=== PATIENT | male | born 1975 | race Caucasian/White ===

== ENCOUNTER 2020-12-03 18:07 | Emergency (ER) | payer OTHER, SELFPAY ==
[2020-12-03 18:17] VITALS: BP 120/83; PULSE 105; RESP 16; TEMP 37.1; O2SAT 99
--- NOTE | 2020-12-03 18:28 | PC.NURSE ---
in br to obtain ua spec.
--- NOTE | 2020-12-03 18:48 | ED.MALEGU ---
HPI - Male Genitourinary General Chief complaint: Urogenital-Male Stated complaint: swelling Testicle Time Seen by Provider: 12/03/20 18:32 Source: patient and RN notes reviewed Mode of arrival: ambulatory Limitations: no limitations History of Present Illness HPI Narrative: Patient presents today complaining of left testicular swelling and pain with left lower quadrant pain since 5:00 this morning upon waking. States pain has been constant. Patient does state he had some hematuria this weekend, but this has since resolved. Denies dysuria, penile discharge, or any additional symptoms. He currently rates his pain 3/10 after he took a gram of Tylenol prior to arrival. MD Complaint: testicle pain and testicle swelling Related Data Home Medications Medication Instructions Recorded Confirmed No Home Medications 12/03/20 12/03/20 Allergies Allergy/AdvReac Type Severity Reaction Status Date / Time No Known Allergies Allergy Verified 12/03/20 18:18 Review of Systems Review of Systems: Narrative: CONSTITUTIONAL: Denies body aches, fever, chills, or sweats. EYES: Denies visual changes, redness, or discharge. ENT: Denies rhinorrhea, congestion, sore throat, or otalgia. CARDIOVASCULAR: Denies chest pain, palpitations, or edema. RESPIRATORY: Denies cough or dyspnea. GASTROINTESTINAL: Denies nausea, vomiting, or diarrhea.+ Left lower quadrant pain GENITOURINARY: Denies dysuria or hematuria.+ Left testicular swelling and pain SKIN: Denies rash, itching, or wounds. MUSCULOSKELETAL: Denies back pain, joint pain, or myalgia. NEUROLOGIC: Denies headache, numbness, tingling, or weakness. PSYCH: Denies depression or anxiety. [facility] Past Medical History Medical History (Updated 12/03/20 @ 18:53 by Nazanin Connelly, [facility], ) History of kidney stones Comments At time of signature, I have reviewed and agree with nursing past medical, surgical, social and family history unless otherwise noted. Please see nursing chart for further information. There is no relevant family history pertinent to the presenting complaint Exam Narrative: Exam Narrative: GENERAL: Well-appearing, well-nourished, and in no acute distress. HEAD: Normocephalic, atraumatic. EYES: EOMI. No redness or drainage. Conjunctivae normal. ENT: Mucous membranes pink and moist. NECK: Normal AROM. CHEST: No respiratory distress. Clear to auscultation. HEART: Regular rate and rhythm. No murmur appreciated. Normal peripheral pulses. ABDOMEN: Soft, nondistended, normal active bowel sounds.+ Mild tenderness to left lower quadrant without rebound or guarding. : Left testicle moderately edematous and tender anteriorly. No swelling or urethral discharge. Right testicle normal. MUSCULOSKELETAL: No bony tenderness. EXTREMITIES: Normal range of motion. No edema. SKIN: Warm, dry, no rash. Capillary refill normal. Normal skin turgor. NEURO: No focal deficits. Alert and oriented x3. Gait steady. PSYCH: Normal affect. No signs of depression or anxiety. Course Vital Signs Vital signs: Vital Signs Temperature 98.7 F 12/03/20 18:17 Pulse Rate 105 H 12/03/20 18:17 Respiratory Rate 16 12/03/20 18:17 Blood Pressure 120/83 12/03/20 18:17 Pulse Oximetry 99 12/03/20 18:17 Temperature 98.7 F 12/03/20 18:17 Pulse Rate 105 H 12/03/20 18:17 Respiratory Rate 16 12/03/20 18:17 Blood Pressure 120/83 12/03/20 18:17 Pulse Oximetry 99 12/03/20 18:17 Reviewed Transfer Transfered to: [place] Transportation: Other (Private vehicle) Transfer rationale: Left testicular swelling and pain Accepting physician: Santos TREJO - Male Genitourinary Differential Diagnosis Differential diagnosis: Likely urinary tract infection, urethritis, epididymitis and other (Hydrocele, varicocele, ureteral stone) Lab Data Attestation: I reviewed the patient's lab results. Labs: Urine Glucose Negative Re
== END 2020-12-03 18:48 | disposition short-term general hospital (02) ==
PROVIDERS: Emergency Provider Nurse Practitioner
DX: N50.89 Other specified disorders of the male genital organs (principal); R10.32 Left lower quadrant pain
CPT/HCPCS: 81003; 99202; G0463

== ENCOUNTER 2020-12-03 19:05 | Emergency (ER) | payer OTHER, SELFPAY ==
--- NOTE | ~2020-12-03 | US_ITS ---
EXAMINATION: US scrotum doppler EXAM DATE: 12/03/2020 21:13 INDICATION: Left testicular pain. TECHNIQUE: Multiple grayscale and Doppler images of the testicles and scrotum were obtained bilateral ly. There is no prior study for comparison. FINDINGS: Right testicle measures 4.6 x 3.2 x 2.3 cm and is morphologically normal. Low resistance Doppler pedro w confirmed. The epididymis is unremarkable. There is no hydrocele or varicocele. Left testicle measures 5.1 x 3.3 x 3.4 cm and has slightly heterogeneous echogenicity compared to con tralateral side. The epididymis and testicular right, have diffusely increased vascularity, appearan ce consistent with epididymoorchitis. There is small reactive hydrocele. IMPRESSION: 1. Left epididymoorchitis. Reviewed, dictated and finalized at location A. IMPRESSION: 1. Left epididymoorchitis.
[2020-12-03 19:43] VITALS: BP 133/71; PULSE 93; RESP 14; TEMP 37.2; O2SAT 98
--- NOTE | 2020-12-03 20:05 | ED.GENADULT ---
HPI - General Adult General Chief complaint: Urogenital-Male Stated complaint: swollen testicle Time Seen by Provider: 12/03/20 19:50 Source: patient History of Present Illness HPI narrative: Patient is a 45 y/o male complaining of left scrotal pain and swelling when he woke up this morning around 5:00 AM. He describes the pain as a pressure and it's worse with walking and any movement. He has no fever chills. He has no difficulty with urination. He also has some left lower abdominal pain. Related Data Allergies Allergy/AdvReac Type Severity Reaction Status Date / Time No Known Allergies Allergy Verified 12/03/20 18:18 Review of Systems Constitutional: Constitutional: Denies chills, Denies fever(s), Denies headache(s) and Denies weakness Eyes: Eyes: Denies blurry vision ENT: Denies headache(s) and Denies neck pain Cardiovascular: Cardiovascular: Denies chest pain and Denies dyspnea Respiratory: Respiratory: Denies cough and Denies dyspnea Gastrointestinal: Gastrointestinal: Reports abdominal pain, Denies diarrhea, Denies nausea and Denies vomiting Genitourinary: Genitourinary: Denies hematuria, Denies dysuria and Reports scrotal swelling Musculoskeletal: Musculoskeletal: Denies back pain and Denies neck pain Neurologic: Denies headache(s) and Denies weakness [facility] Past Medical History Medical History History of kidney stones Exam Const: General: no acute distress and well developed Orientation/consciousness: oriented to person, oriented to place, oriented to time and patient oriented x3 HENMT: Head: normocephalic Ears: external ears normal General nose exam: Normal external nose present Eyes: General: appearance normal, both eyes and all related structures Conjunctivae: conjunctivae normal Neck: Neck: normal visual inspection and full ROM Chest: Chest palpation & inspection: normal inspection of the chest and no tenderness Resp: Effort & Inspection: normal respiratory effort Auscultation: clear to auscultation bilaterally Cardio: Rate: regular rate Rhythm: regular rhythm GI: GI Palp: No abdominal tenderness and Yes Soft to palpation : Male General Exam: Yes normal external exam Penis: Yes normal penis Scrotum: scrotal swelling on the left Skin: General skin exam: normal color and turgor normal Neuro: General: oriented to person, oriented to place, oriented to time and patient oriented x3 Cognition (Neuro): normal cognition Extrem: General: normal to inspection, full ROM and no pedal edema Psych: Appearance: grossly normal Mental Status: mental status grossly normal Affect: normal affect Course Vital Signs Vital signs: Vital Signs Temperature 37.2 C 12/03/20 19:43 Pulse Rate 93 12/03/20 19:43 Respiratory Rate 14 12/03/20 19:43 Blood Pressure 133/71 12/03/20 19:43 Pulse Oximetry 98 12/03/20 19:43 Temperature 37.2 C 12/03/20 19:43 Pulse Rate 93 12/03/20 19:43 Respiratory Rate 14 12/03/20 19:43 Blood Pressure 133/71 12/03/20 19:43 Pulse Oximetry 98 12/03/20 19:43 Medical Decision Making Vital Signs Vital Signs: Vital Signs Temperature 37.2 C 12/03/20 19:43 Pulse Rate 93 12/03/20 19:43 Respiratory Rate 14 12/03/20 19:43 Blood Pressure 133/71 12/03/20 19:43 Pulse Oximetry 98 12/03/20 19:43 Temperature 37.2 C 12/03/20 19:43 Pulse Rate 93 12/03/20 19:43 Respiratory Rate 14 12/03/20 19:43 Blood Pressure 133/71 12/03/20 19:43 Pulse Oximetry 98 12/03/20 19:43 Lab Data Result diagrams: 12/03/20 21:54 12/03/20 21:54 Labs: Lab Results 12/03/20 12/03/20 12/03/20 Range/Units 21:54 21:54 21:54 WBC 14.3 H (4.5-10.0) K/mm3 RBC 4.73 (4.6-6.20) M/mm3 Hgb 14.2 (14.0-18.0) g/dL Hct 42.3 (42.0-52.0) % MCV 89.4 (80-100) fl MCH 30.0 (26-34) pg MCHC 33.6 (32-36) g/dl RDW 11.9 (11.5-14.5)
[2020-12-03 22:03] LABS: Basophils Absolute Auto 0.1 K/mm3 (0.0-0.1); Basophils Percent Auto 0.4 % (0.2-1.2); Eosinophils Absolute Auto 0.2 K/mm3 (0-0.3); Eosinophils Percent Auto 1.1 % (0-4.4); Hematocrit 42.3 % (42.0-52.0); Hemoglobin 14.2 g/dL (14.0-18.0); Immature Granulocyte Absolute 0.06 K/mm3 (0.00-0.031); Immature Granulocyte Percent A 0.4 % (0-0.5); Lymphocytes Absolute Auto 2.17 K/mm3 (0.9-3.2); Lymphocytes Percent Auto 15.2 % (18.3-44.2); Mean Corpuscular HGB Conc 33.6 g/dl (32-36); Mean Corpuscular Volume 89.4 fl (80-100); Mean Platelet Volume 10.5 fl (7.4-10.4); Monocytes Absolute Auto 1.5 K/mm3 (0.1-0.6); Monocytes Percent Auto 10.6 % (2.6-8.5); Neutrophils Absolute Auto 10.3 K/mm3 (1.3-6.7); Neutrophils Percent Auto 72.3 % (45.5-73.1); Platelet Count Result 305 k/mm3 (150-375); Red Blood Count 4.73 M/mm3 (4.6-6.20); Red Cell Distribution Width 11.9 % (11.5-14.5); White Blood Count 14.3 K/mm3 (4.5-10.0)
[2020-12-03 22:11] LABS: Add Urine Microscopic? YES; Appearance Urine Cloudy (Clear); Bacteria Urine 1+ /hpf; Bilirubin Urine Negative (Negative); Blood Urine 1+ (Negative); Color Urine Amber (Yellow); Glucose Urine UA Negative (Negative); Ketones Urine 1+ mg/dL (Negative); Leukocyte Esterase Ur 2+ LEU/UL (Negative); Mucus Urine Heavy /lpf; Nitrate Urine Negative (Negative); Protein Urine 2+ mg/dL (Negative); Squamous Epithelial Cell Urine Few /hpf (Few); WBC Urine >75 /hpf
[2020-12-03 22:12] LABS: Specific Grav Ur 1.041 (1.001-1.035)
[2020-12-03 22:18] LABS: Alanine Aminotransferase 34 U/L (4-50); Albumin Level 4.5 g/dL (3.5-5.1); Alkaline Phosphatase 102 U/L (38-126); Anion Gap 12 mmol/L (8-16); Aspartate Amino Transferase 33 U/L (17-59); Bilirubin,Total 0.7 mg/dL (0.2-1.3); Blood Urea Nitrogen 20 mg/dL (9-20); Calcium 9.1 mg/dL (8.4-10.2); Carbon Dioxide 26 mmol/L (22-30); Chloride 105 mmol/L (98-107); Estimated CRCL calculation 73 ml/min; Estimated Glomerular Filt Rate 60; Glucose 96 mg/dL (75-110); Potassium 3.9 mmol/L (3.4-5.0); Sodium 143 mmol/L (137-145)
[2020-12-03] MEDS: LIDOCAINE HCL 1% LOCAL INJ 20 ML VIAL (23:28)
[2020-12-03] MEDS: cefTRIAXone 1 GM VIAL IM (23:28)
[2020-12-04 00:20] VITALS: BP 126/78; PULSE 90; RESP 16; TEMP 36.7; O2SAT 100
== END 2020-12-03 23:35 | disposition home or self-care (01) ==
PROVIDERS: Emergency Provider Emergency Medicine
DX: N45.1 Epididymitis (principal)
CPT/HCPCS: 36415; 76870; 80053; 81001; 85025; 87086; 93976; 96372; 99284; J0696

== ENCOUNTER 2021-01-20 13:03 | Emergency (ER) | payer OTHER, SELFPAY ==
--- NOTE | ~2021-01-20 | CT_ITS ---
EXAMINATION: CT abdomen pelvis w con DATE: 01/20/2021 17:54 INDICATION: Epigastric abdominal pain. TECHNIQUE: Computed tomography (CT) of the abdomen and pelvis was performed with 100 mL Omnipaque 350 intravenous contrast. Automated exposure control and iterative reconstruction technique were employe d. The dose-length product was 676.36 mGy-cm. COMPARISON: None. FINDINGS: The visualized portions of the lung bases demonstrate mild atelectasis. No pleural effusion . The heart size is normal. No pericardial effusion. There is a small sliding hiatal hernia. There ar e cysts in the liver measuring up to 4 mm. The gallbladder, spleen, pancreas, and adrenal glands are normal. There is a 4 mm cyst in right kidney. There is a 1 mm stone in right kidney. There is a delay ed left-sided contrast nephrogram. There is mild left hydronephrosis and hydroureter. There is a 3 mm stone at left ureterovesicular junction. The prostate is mildly enlarged. There are no dilated loops of bowel. The appendix is normal. There are no pathologically enlarged lymph nodes. There is no free intraperitoneal fluid. There is prominent fat in the inguinal canals that may be small hernias. Ther e is mild thoracolumbar spondylosis. IMPRESSION: 1. 3 mm stone at left ureterovesicular junction with mild left hydronephrosis and hydroureter. 2. 1 mm nonobstructing right kidney stone. Reviewed, dictated and finalized at location A. IMPRESSION: 1. 3 mm stone at left ureterovesicular junction with mild left hydronephrosis a nd hydroureter. 2. 1 mm nonobstructing right kidney stone.
[2021-01-20 13:13] VITALS: BP 165/110; PULSE 110; RESP 18; TEMP 36.3; O2SAT 97
[2021-01-20 13:30] LABS: Basophils Percent Auto 0.2 % (0.2-1.2); Eosinophils Percent Auto 0.2 % (0-4.4); Hematocrit 44.1 % (42.0-52.0); Immature Granulocyte Absolute 0.04 K/mm3 (0.00-0.031); Immature Granulocyte Percent A 0.3 % (0-0.5); Lymphocytes Absolute Auto 1.49 K/mm3 (0.9-3.2); Lymphocytes Percent Auto 9.8 % (18.3-44.2); Mean Corpuscular Hemoglobin 29.9 pg (26-34); Mean Corpuscular Volume 87.8 fl (80-100); Mean Platelet Volume 10.4 fl (7.4-10.4); Monocytes Absolute Auto 1.3 K/mm3 (0.1-0.6); Monocytes Percent Auto 8.8 % (2.6-8.5); Neutrophils Absolute Auto 12.2 K/mm3 (1.3-6.7); Neutrophils Percent Auto 80.7 % (45.5-73.1); Platelet Count Result 351 k/mm3 (150-375); Red Blood Count 5.02 M/mm3 (4.6-6.20); Red Cell Distribution Width 12.4 % (11.5-14.5); White Blood Count 15.2 K/mm3 (4.5-10.0)
[2021-01-20 13:43] LABS: Alanine Aminotransferase 31 U/L (4-50); Albumin Level 4.4 g/dL (3.5-5.1); Alkaline Phosphatase 105 U/L (38-126); Anion Gap 10 mmol/L (8-16); Aspartate Amino Transferase 31 U/L (17-59); Bilirubin,Total 0.9 mg/dL (0.2-1.3); Blood Urea Nitrogen 18 mg/dL (9-20); Calcium 9.3 mg/dL (8.4-10.2); Carbon Dioxide 24 mmol/L (22-30); Chloride 103 mmol/L (98-107); Estimated CRCL calculation 60 ml/min; Estimated Glomerular Filt Rate 47; Glucose 116 mg/dL (65-110); Lipase 35 U/L (23-300); Potassium 3.8 mmol/L (3.4-5.0); Sodium 137 mmol/L (137-145)
[2021-01-20 13:51] LABS: Mucus Urine Rare /lpf; Squamous Epithelial Cell Urine Few /hpf (Few); WBC Urine 0-3 /hpf
[2021-01-20 14:02] LABS: Add Urine Microscopic? YES; Appearance Urine Clear (Clear); Bilirubin Urine Negative (Negative); Blood Urine Negative (Negative); Color Urine Yellow (Yellow); Glucose Urine UA Negative (Negative); Ketones Urine Trace mg/dL (Negative); Leukocyte Esterase Ur Negative LEU/UL (Negative); Nitrate Urine Negative (Negative); Protein Urine 1+ mg/dL (Negative); Urobilinogen Urine Negative mg/dL (<2.0)
--- NOTE | 2021-01-20 17:09 | ED.ABDPAIN ---
HPI - Abdominal Pain General Chief Complaint: Abdominal Pain Stated Complaint: N/V Time Seen by Provider: 01/20/21 16:56 Source: patient Mode of arrival: ambulatory Limitations: no limitations History of Present Illness HPI narrative: Patient is a 45-year-old male complaining of mid abdominal pain, 7 out of 10, dull, nonradiating, worse after eating that started today. Patient denies any chest pain, shortness of breath, nausea, vomiting, diarrhea, fever or chills. Patient denies any urinary symptoms. Related Data Allergies Allergy/AdvReac Type Severity Reaction Status Date / Time No Known Allergies Allergy Verified 01/20/21 16:51 Review of Systems Review of Systems: All systems reviewed & are unremarkable except as noted in HPI and below Constitutional: Constitutional: Denies body ache(s), Denies chills, Denies excessive sweating, Denies fatigue, Denies fever(s), Denies headache(s), Denies lethargy, Denies malaise, Denies weakness and Denies weight loss Eyes: Eyes: Denies blurry vision, Denies change in vision and Denies loss of vision ENT: Denies dizziness, Denies ear discharge, Denies headache(s), Denies lip swelling, Denies epistaxis, Denies nasal congestion, Denies neck pain, Denies throat swelling and Denies tongue swelling Cardiovascular: Cardiovascular: Denies chest pain, Denies chest pain at rest, Denies chest pain with activity, Denies diaphoresis, Denies rapid heart rate, Denies edema, Denies irregular heart rhythm, Denies lightheadedness, Denies palpitations, Denies dyspnea and Denies dyspnea on exertion Respiratory: Respiratory: Denies chest congestion, Denies cough, Denies hemoptysis, Denies dyspnea and Denies dyspnea on exertion Gastrointestinal: Gastrointestinal: Denies melena, Denies hematochezia, Denies diarrhea, Denies nausea, Denies vomiting and Denies hematemesis Musculoskeletal: Musculoskeletal: Denies abnormal gait, Denies deformity, Denies joint swelling, Denies limited range of motion, Denies neck pain and Denies numbness Neurologic: Denies Abnormal speech present, Denies abnormal gait, Denies confusion, Denies dizziness, Denies headache(s), Denies focal weakness, Denies loss of vision, Denies numbness, Denies Other visual disturbances, Denies Sensory deficit (Neuro) and Denies weakness Psychiatric: Psychiatric: Denies confusion, Denies depression, Denies auditory hallucinations, Denies homicidal ideation and Denies suicidal ideation Endocrine: Endocrine: Denies cold intolerance, Denies excessive sweating, Denies fatigue, Denies heat intolerance and Denies palpitations Hematologic/Lymphatic: Hematologic/Lymphatic: Denies easy bleeding and Denies easy bruising Allergic/Immunologic: Allergic/Immunologic: Denies lip swelling, Denies throat swelling and Denies tongue swelling PMFSH Past Medical History Medical History History of kidney stones Comments Past medical history: Kidney stones Family history: Negative for aneurysm Social history: Non-smoker no EtOH or drug use Exam Const: General: cooperative, healthy appearing, comfortable, no acute distress, well developed, alert and awake; No confusion Orientation/consciousness: oriented to person, oriented to place, oriented to time, patient oriented x3 and No confusion Limitations: no limitations HENMT: Head: normal to inspection, normocephalic and atraumatic Ears: hearing grossly normal bilaterally, TM normal on the right and TM normal on the left General nose exam: Normal external nose present, Normal nares present and No nasal discharge present Face and sinus: normal facial exam Mouth: Yes Normal oral and palatal mucosa present, Yes lip normal, Yes tongue normal and Yes oropharynx normal Throat: posterior oropharynx normal, tonsils normal and uvula midline Eyes: General: appearance normal, both eyes and all related structures Pupils: Equal, round and reactive pupils present EOM: EOMs intact bilat
[2021-01-20] MEDS: LACTATED RINGERS 1,000 ML 999 ML IV CONT ×2 (17:14→20:31)
[2021-01-20 18:52] VITALS: BP 133/101; PULSE 84; RESP 18; O2SAT 97
[2021-01-20 19:06] VITALS: BP 146/94; PULSE 84; RESP 16; O2SAT 98
--- NOTE | 2021-01-20 19:07 | PC.NURSE ---
Report received and care of pt assumed at this time.
[2021-01-20] MEDS: TAMSULOSIN HCL 0.4 MG CAPSULE PO (19:56)
[2021-01-20] MEDS: KETOROLAC 30 MG/ML VIAL (*BKC) IV PUSH (19:57)
[2021-01-20] MEDS: PROMETHAZINE HCL 25 MG/ML AMPUL 12.5 MG IV PUSH (20:32)
[2021-01-20] MEDS: HYDROmorphone HCL INJ (*CRX) 1 MG/ML SYR 0.5 MG IV PUSH (20:34)
[2021-01-20 20:53] VITALS: BP 143/102; PULSE 100; RESP 18; O2SAT 99
[2021-01-20 21:31] VITALS: BP 145/94; PULSE 79; RESP 18; O2SAT 97
== END 2021-01-20 21:33 | disposition home or self-care (01) ==
PROVIDERS: Emergency Medicine; Emergency Provider Emergency Medicine
DX: N13.2 Hydronephrosis with renal and ureteral calculous obstruction (principal); Z87.442 Personal history of urinary calculi
CPT/HCPCS: 36415; 74177; 80053; 81001; 83690; 85025; 96361; 96374; 96375; 99284; A9270; J1170; J1885; J2550; J7120; Q9967

== ENCOUNTER 2021-01-23 09:25 | Outpatient (CLI) | payer OTHER, SELFPAY ==
--- NOTE | ~2021-01-23 | CT_ITS ---
EXAMINATION: XR abdomen/kub 1V, CT abdomen pelvis wo con DATE: 01/23/2021 10:47 INDICATION: Left ureteral stone TECHNIQUE: 1. Computed tomography (CT) of the abdomen and pelvis was performed without intravenous contrast. Aut omated exposure control and iterative reconstruction technique were employed. The dose-length product was 287.07 mGy-cm. 2. A supine view of the abdomen on 2 radiographs was obtained. COMPARISON: 01/20/2021 FINDINGS: CT: Lung bases are clear. Heart size is normal. Small pericardial effusion. Small sliding-type hiatal her codey. A couple subcentimeter hepatic cysts which are better appreciated on the prior contrast enhanced study. Gallbladder, spleen, pancreas and bilateral adrenal glands are normal. [address] one at the upper pole of the otherwise normal right kidney. Subcentimeter proteinaceous/hemorrhagic c yst at the posterior upper pole of the left kidney. The previously seen small stone at the left urete rovesicular junction is no longer visualized and has likely passed with resolution of prior left hydr oureteronephrosis. No other evident urolithiasis. Bowels including the appendix are normal. Bladder i s normal. No free intraperitoneal gas or fluid. No pathologically enlarged abdominal or pelvic lympha denopathy. Minimal to mild scattered degenerative skeletal changes. KUB: Phlebolith in the left hemipelvis. The punctate 1 mm right renal stone seen on prior CT is too small to be visualized on the plain radiographs. Normal bowel gas pattern. Lung bases are clear. IMPRESSION: 1. Interval passage of a previously obstructing stone at the left ureterovesicular junction with reso lution of prior mild left hydroureteronephrosis. 2. 1 mm nonobstructing stone at the upper pole of the right kidney too small to be visualized on plai n radiographs. Reviewed, dictated and finalized at location A. IMPRESSION: 1. Interval passage of a previously obstructing stone at the left ureterovesicu lar junction with resolution of prior mild left hydroureteronephrosis. 2. 1 mm nonobstructing stone at the upper pole of the right kidney too small to be visualized on plain radiographs.
== END 2021-01-23 09:26 | disposition home or self-care (01) ==
PROVIDERS: Visit Provider Urology
DX: N20.0 Calculus of kidney (principal)
CPT/HCPCS: 74018; 74176